=== PATIENT | female | born 1985 | race Caucasian/White ===

== ENCOUNTER 2019-04-08 21:13 | Inpatient (IN) | payer OTHER ==
[2019-04-08 23:18] LABS: BLOOD UREA NITROGEN 6.1 mg/dL (7-18); CALCIUM 9.5 mg/dL (8.5-10.1); CREATININE 0.5 mg/dL (0.55-1.3); POTASSIUM 3.5 mmol/L (3.5-5.1)
[2019-04-08 23:29] VITALS: BMI 30.7
[2019-04-08 23:34] LABS: BASO % 0.3 % (0-2.0); EOS % 0.2 % (0-4.5); HEMATOCRIT 38.8 % (32.4-45.2); HEMOGLOBIN 13.1 GM/dL (10.7-15.3); LYMPH % 7.7 % (8-40); MCH 31.5 pg (25.7-33.7); MCHC 33.8 g/dl (32.0-36.0); MEAN CELL VOLUME 93.1 fl (80-96); MONO % 3.2 % (3.8-10.2); NEUT % 88.6 % (42.8-82.8); PLATELET COUNT 265 K/MM3 (134-434); RBC 4.16 M/mm3 (3.60-5.2); RDW 14.1 % (11.6-15.6)
[2019-04-08] MEDS ORDERED: ELECTROLYTE-148 SOLN 1,000 ML IV SCH (23:45)
[2019-04-09] MEDS ORDERED: FENTANYL/BUPIVACAINE/NS/PF - PCEA - 50 ML DISP.SYRIN EP ONE ×3 (00:03→08:56)
[2019-04-09] MEDS ORDERED: BUPIVACAINE HCL/PF 0.25% (2.5MG/ML) 10 ML VIAL ONE (00:11)
[2019-04-09] MEDS ORDERED: LIDO 2%/EPI 1:200000 PRESRVFRE (20 ML SDVIAL) ONE ×2 (00:11→10:32)
[2019-04-09] MEDS ORDERED: NALOXONE HCL 0.4 MG/ML VIAL IVPUSH PRN (00:38)
[2019-04-09] MEDS ORDERED: FENTANYL/BUPIVACAINE/NS/PF - PCEA - 50 ML DISP.SYRIN EP SCH (00:45)
[2019-04-09] MEDS ORDERED: ELECTROLYTE-148 SOLN 1,000 ML IV SCH (07:00)
--- NOTE | 2019-04-09 07:14 | HP ---
Past Medical History - Primary Care Physician PCP:: Hong Palm - Admission Chief Complaint: 33yo P0 with at EGA 39w4d admitted with spontaneous labor. History of Present Illness: complicated by: 1. LGA fetus with EFW 4225g on US (04/07/2019) 2. Prior TOP x 3 (D&E x 1 at 20wk) History Source: Patient, Medical Record Limitations to Obtaining History: No Limitations - Past Medical History SANITARY AIDE: No: Alzheimer's, CVA, Dementia, Migraine, Multiple Sclerosis, Peripheral Neuropathy, Parkinson's, Seizure, Syncope, TIA, Vertigo, Other Cardiovascular: No: AFIB, Aneurysm, Aortic Insufficiency, Aortic Stenosis, CAD, CHF, Deep Vein Thrombosis, HTN, Hyperlipdemia, [place], Mitral Insufficiency, Mitral Stenosis, Murmur, Pulmonary Hypertension, Other Pulmonary: No: Asthma, Bronchitis, Cancer, COPD, O2 Dependent, Pneumonia, Previously Intubated, Pulmonary Embolus, Pulmonary Fibrosis, Sleep Apnea, Other Gastrointestinal: No: Ascites, Cancer, Constipation, Crohn's Disease, Diverticulitis, Diverticulosis, Esophageal Varices, Gastritis, GERD, GI Bleed, Hemorrhoids, Hiatal Hernia, Inflamatory Bowel Disease, Irritable Bowel Disease, Pancreatitis, Peptic Ulcer Disease, Ulcerative Colitis, Other Hepatobiliary: No: Cirrhosis, Cholelithiasis, Cholecystitis, Choledocholithiasis , Hepatitis A, Hepatitis B, Hepatitis C, Other Renal/: No: Renal Failure, Renal Inusuff, BPH, Cancer, Hematuria, Hemodialysis , Neurogenic Bladder, Renal Calculi, UTI, Other Reproductive: No: Ectopic , Endometriosis, Fibroids, PID, Polycystic Ovary Syndrome, Postmenopausal, Other ...: 4 ...Para: 0 ...Term: 0 ...: 0 ...Spon : 0 ...Induced : 3 ...Multiple Gestation: 0 ...LMP: 07/07/18 ... Weeks Gestation by Dates: 39.4 ...EDC by Dates: 04/13/19 ...EDC by Sono: 04/11/19 Heme/Onc: No: Anemia, B12 Deficiency, Bleeding Disorder, Cancer, Current Chemotherapy, Current Radiation Therapy, Hemochromatosis, Hypercoaguable State, Myeloproliferative Synd, Sickle Cell Disease, Sickle Cell Trait, Thrombocytopenia, Other Infectious Disease: No: AIDS, C-Diff, Herpes Zoster, HIV, MRSA, STD's, Tuberculosis, VREF, Other Psych: No: Addictions, Anxiety, Bipolar, Depression, Panic, Psychosis, Schizophrenia, Other Musculoskeletal: No: Bursitis, Chronic low back pain, Hemiparesis, Hemiplegia, Osteoarthritis, Paraplegia, Other Rheumatology: No: Fibromyalgia, Gout, Lupus, Rheumatoid Arthritis, Sarcoidosis, Vasculitis, Other ENT: No: Allergic Rhinitis, Sinusitis, Other Endocrine: No: Stephens's Disease, Merriman's Disease, Diabetes Insipidus, Diabetes Mellitus, Hyperparathyroidism, Hyperthyroidism, Hypothyroidism, Osteopenia, SIADH, Other Dermatology: No: Basal Cell, Cellulitis, Eczema, Melanoma, Psoriasis, Squamous Cell, Other - Past Surgical History Past Surgical History: No: None, AAA Repair, AICD, Amputation, Appendectomy, Arthrosocopy, AV Fistula/Graft, Bariatric Surgery, Breast Biopsy, Bypass, CABG, Carotid Endarterectomy, Cataract Removal, Cholecystectomy, Colectomy, Colonoscopy, Colostomy, Craniotomy, , Cystectomy, Hernia Repair, Hysterectomy, Ileal Conduit, Ileosotomy, Joint Replacement, Kidney Transplant, Laminectomy, Liver Transplant, Mastectomy, Nephrectomy, Oopherectomy, Orchiectomy, Permanent Pacemaker, Prostatectomy, Splenectomy, Stent, Thoracotomy , TURP, Tonsillectomy, Tubal Ligation, Upper Endoscopy, Valve Replacement, Vasectomy, Vein Stripping/Ligation Hx Myomectomy: No Hx Transabdominal Cerclage: No Additional Surgical History: D&E at 20wk x 1, TOP in 1st trimester x 2. Laparoscopic ovarian cystectomy. - Smoking History Smoking history: Never smoked Have you smoked in the past 12 months: No - Alcohol/Substance Use Hx Alcohol Use: No History of Substance Use: reports: None - Social History Usual Living Arrangement: Yes: With Spouse Do you think of yourself as: Straight/Heterosexual ADL: Independent Occupation: factory clerk at [employer] History of Recent Travel: No Home Medications - Allergies Allergies/Adverse Reactions: Allergies Allergy/AdvReac Type Severity Reaction Status Date / Time almond Allergy Mild Verified 04/07/19 22:47 apple Allergy Mild Verified 04/07/19 22:46 avocado Allergy Mild Verified 04/07/19 22:47 peach Allergy Mild Verified 04/07/19 22:48 pear Allergy Mild Verified 04/07/19 22:48 plum Allergy Mild Verified 04/07/19 22:48 walnut Allergy Mild Verified 04/07/19 22:47 - Home Medications Home Medications: Ambulatory Orders Pnv No.95/Ferrous Fum/Folic AC [ Caplet] 1 tab PO DAILY 04/07/19 Family Medical History Family Hx Cancer: Grandmother (maternal) (stomach) Family Hx Respiratory Disorders: Brother (Asthma) Review of Systems - Review of Systems Constitutional: reports: No Symptoms Eyes: reports: No Symptoms HENT: reports: No Symptoms Neck: reports: No Symptoms Cardiovascular: reports: No Symptoms Respiratory: reports: No Symptoms Gastrointestinal: reports: No Symptoms Genitourinary: reports: No Symptoms Breasts: reports: No Symptoms Reported Musculoskeletal: reports: No Symptoms Integumentary: reports: No Symptoms Neurological: reports: No Symptoms Endocrine: reports: No Symptoms Hematology/Lymphatic: reports: No Symptoms Psychiatric: reports: No Symptoms Pain Intensity: 0 (Epidural) Physical Exam - Maternity Vital Signs: Vital Signs Temperature 98.0 F 04/09/19 06:00 Pulse Rate 112 H 04/09/19 06:45 Respiratory Rate 04/09/19 06:45 Blood Pressure 132/72 04/09/19 06:45 O2 Sat by Pulse Oximetry (%) 99 04/09/19 06:45 Constitutional: Yes: Well Nourished, No Distress, Calm Eyes: Yes: WNL, Conjunctiva Clear, EOM Intact HENT: Yes: WNL, Atraumatic, Normocephalic Neck: Yes: WNL, Supple, Trachea Midline Cardiovascular: Yes: WNL, Regular Rate and Rhythm Lungs: Clear to auscultation, Normal air movement - Abdominal Exam/OB Fundal Height: 40 Number of Fetuses: Single Presentation: Vertex Contractions: Yes Regularity: Irregular Intensity: Unaware Monitor Mode: External Heart Rate (range): 140 Heart Rate Location: Midline Category: I Accelerations: None Decelerations: Variable (occasionally) - Vaginal Exam/OB Vaginal Bleediing: No Speculum Exam: No Dilatation (cm): 3 Effacement (%): 80 Amniotic Membrane Status: Leaking Nitrazine Test: Positive Amniotic Fluid: Yes: Meconium Stained Meconium: Moderate Presentation: Vertex/Position Station: -1 (EFW 4250 grams, gynecoi pelvimetry) - Physical Exam Musculoskeletal: Yes: WNL Extremities: Yes: WNL Edema: No Integumentary: Yes: WNL Deep Tendon Reflex Grade: Normal +2 ...Motor Strength: WNL Psychiatric: Yes: WNL, Alert, Oriented - Labs Lab Results: CBC, BMP 04/08/19 23:20 04/08/19 22:42 Hemorrhage Risk Assessment - Risk Factors Medium Risk Factors: Yes: None High Risk Factors: Yes: None Risk Score: 1 Risk Level: Medium Risk Imaging - Results Ultrasound: Report Reviewed Assessment/Plan 33yo P0 with spontaneous labor. Fetus with category 1 tracing. Pt had some occasional variable decels before but not in last 20 min. Baby appears LGA. Pt has adequate gynecoid pelvimetry and prefers CHRISSY. We discussed he risks of distress, arrest of labor, shoulder dystocia, etc. The pt prefers to try labor augmentation and monitor progress. She will consider a C/S if there is no progress or other OB issues.
[2019-04-09] MEDS ORDERED: OXYTOCIN 30 UNITS in 0.9% NS 30 UNIT/500 ML INFUS.BAG IVPB SCH (07:15)
[2019-04-09 09:11] LABS: INR 1.08 (0.83-1.09); PROTHROMBIN TIME (PATIENT) 12.7 SEC (9.7-13.0)
[2019-04-09 09:14] LABS: ACTIVATED PTT 28.8 SECONDS (25.2-36.5)
[2019-04-09] MEDS ORDERED: ONDANSETRON 4 MG/2 ML VIAL IVPUSH PRN (10:27)
--- NOTE | 2019-04-09 10:31 | PN ---
Ante-Partal Exam - Subjective Subjective: Pt w/o complaints Vital Signs: Vital Signs Temperature 98.6 F 04/09/19 08:00 Pulse Rate 96 H 04/09/19 10:00 Respiratory Rate 18 04/09/19 10:00 Blood Pressure 145/73 04/09/19 10:00 O2 Sat by Pulse Oximetry (%) 99 04/09/19 10:00 Bleeding: No Headache: No Visual changes: No Right upper quadrant pain: No Pain (scale 1-10): 0 - Contractions Contractions: Yes (q2min) Regularity: Regular Intensity: Unaware Monitor Mode: External - Exam during Labor Heart Rate: 140 Variability: Moderate Heart Rate Location: Midline Category: II Monitor Accelerations: Present Monitor Decelerations: Variable Exam: Vaginal Dilatation (cm): 3 Effacement (%): 80 Amniotic Membrane Status: Leaking Nitrazine Test: Positive Amniotic Fluid: Meconium Stained Meconium Staining: Thick Presentation: Vertex Station: -2 - Intrapartum Hemorrhage Risk Medium Risk Factors: None High Risk Factors: None Risk Score: 0 Risk Level: Low Risk - Assessment/Plan Assessment/Plan: 33yo with spont labor and augmented with pitocin. Pt with adequate contractions and no cervical changes and no descent. The pt has cephalopelvic disproportion. due to macrosomia. The fetus with Category II tracing due to variable decels. Pt was offered a C/S. We discussed the risks and benefits of C/S at length, including but not limited to scarring, pain, bleeding, infection, injury to underlying organs and structures, need for additional surgery to repair/treat any problems or complications, complications/ injuries, etc. The pt verbalized her understanding and requested to proceed with surgery. The pt is aware that all surgeries have risks and no guarantees can be provided.
[2019-04-09] MEDS ORDERED: ceFAZolin SODIUM 1 GM VIAL ONE (10:47)
[2019-04-09] MEDS ORDERED: OXYTOCIN 10 UNITS/ML VIAL ONE ×2 (11:00→11:43)
[2019-04-09] MEDS ORDERED: morphine SULFATE/PF 0.5 MG/ML (2cc Syringe - QUVA) ONE ×3 (11:02)
[2019-04-09] MEDS ORDERED: KETOROLAC TROMETHAMINE 30 MG/1 ML VIAL ONE (11:31)
[2019-04-09 11:42] LABS: ARTERIAL BLD GAS O2 SATURATION 23.4 % (95-98); ARTERIAL BLOOD GAS BASE EXCESS -2.3 meq/l (-2-2); ARTERIAL BLOOD GAS PCO2 60.4 mmHg (35-45); ARTERIAL BLOOD GAS pH 7.26 (7.35-7.45)
[2019-04-09 11:46] LABS: VENOUS PC02 51.3 mmHg (38-52); VENOUS PH 7.32 (7.31-7.41)
[2019-04-09 11:51] LABS: ARTERIAL BLOOD GAS PO2 < 49 mmHg (80-100)
[2019-04-09 11:54] LABS: VENOUS PO2 < 49 mmHg (28-48)
[2019-04-09] MEDS ORDERED: WITCH HAZEL 50% (TUCKS) 40 PAD/JAR PAD TP PRN (11:57)
[2019-04-09] MEDS ORDERED: METHYLERGONOVINE MALEATE 0.2 MG/1 ML AMP IM PRN (11:57)
[2019-04-09] MEDS ORDERED: oxyCODONE HCL 5 MG TABLET PO PRN (11:57)
[2019-04-09] MEDS ORDERED: OXYTOCIN 20 UNITS in 0.9% NS 20 UNIT/1,000 ML INFUS.BAG IV SCH (12:00)
--- NOTE | 2019-04-09 12:06 | OP ---
Operative Note - Note: Operative Date: 04/09/19 Pre-Operative Diagnosis: Non-reassuring FHT, CPD Operation: Primary LT C/S Findings: Live baby boy in vtx presentation with meconium in amniotic fluids. Nuchal cord x 1. 9-9, Wt 8lb 2 oz. Normal uterus/tubes/ovaries. Post-Operative Diagnosis: Same as Pre-op Surgeon: Hong Palm Forklift Mechanic: Héctor Salazar Anesthesiologist/LOCKSTITCH SHOULDER JOINER: Aditya Piña Anesthesia: Epidural Specimens Removed: Placenta Estimated Blood Loss (mls): 600 Drains & Tubes with Location: Boone cath Drains, Volume Out (mls): 200 Blood Volume Replaced (mls): 0 Fluid Volume Replaced (mls): 2,000 Operative Report Dictated: Yes
[2019-04-09] MEDS ORDERED: CITRIC ACID/SODIUM CITRATE 30 ML UNIT-DOSE CUP PO ONE (12:16)
[2019-04-09] MEDS ORDERED: OXYTOCIN 20 UNITS in 0.9% NS 20 UNIT/1,000 ML INFUS.BAG IV ONE (12:37)
--- NOTE | 2019-04-09 13:33 | OP ---
DATE OF OPERATION: 04/09/2019 PREOPERATIVE DIAGNOSIS: Non-reassuring heart tracing, cephalopelvic disproportion. POSTOPERATIVE DIAGNOSIS: Non-reassuring heart tracing, cephalopelvic disproportion, delivered. PROCEDURE: Primary low transverse section via a Pfannenstiel skin incision. SURGEON: Hong Palm MD ENGINE MECHANIC: Héctor Salazar MD ANESTHESIOLOGIST: DANYELL Mendez ANESTHESIA: Epidural. COMPLICATIONS: None. ESTIMATED BLOOD LOSS: 600 mL PATHOLOGY: Placenta. FINDINGS: Live baby boy in vertex presentation with meconium in amniotic fluids. Nuchal cord wrapped around once. 9 and 9. Baby's weight 8 pounds 2 ounces. Normal uterus, fallopian tubes and ovaries. URINE OUTPUT: 200 mL. INTRAVENOUS FLUIDS: 2000 mL OPERATIVE REPORT FOR SURGERY: The patient was met preoperatively. Risks, benefits and alternatives of surgery were discussed in details, all questions were answered. The consent form was reviewed and signed. The patient verbalized understanding and requested to proceed with surgery. She was brought to the OR with the IV running. The patient was placed on the surgical table. The epidural anesthesia was bolused and the level was found to be adequate. The patient was then prepped and draped in the usual sterile fashion. A Boone catheter was left to drain to gravity. The timeout was conducted as per standard protocol. The surgeons then proceeded with the operation. A Pfannenstiel skin incision was made with the knife approximately 2 cm above the pubic symphysis. The incision was taken down to the level of fascia. The fascia was incised in the midline and the incision was extended bilaterally using Holcomb scissors. The fascia was then dissected away from the rectus muscles superiorly and inferiorly. The rectus muscles were in the midline using blunt dissection. The peritoneum was identified and entered sharply. The peritoneal incision was extended superiorly and inferiorly using Metzenbaum scissors. The bladder peritoneum was dissected away from the lower uterine segment. The bladder was reflected downwards and retracted using a Cesar retractor. The uterus was incised transversely in the lower uterine segment. The uterine incision was extended bilaterally using Bandage scissors. The baby was delivered from vertex presentation without complications. The nuchal cord was released without difficulty. The baby was crying spontaneously. The umbilical cord was clamped and cut. The baby was handed to the awaiting electronic test technician. The placenta was removed manually and without complications. The uterus was cleared of all clots and debris using laparotomy laps. The uterine incision was repaired using a 0 Biosyn suture with a running locking stitch. Good hemostasis was noted. The incision was then imbricated using a secondary layer of closure with a 0 Biosyn suture. Good hemostasis was noted. The bladder peritoneum was reapproximated using a 0 Biosyn suture. The operative site was irrigated using copious amounts of normal saline. Once the saline was aspirated, good hemostasis was confirmed. The parietal peritoneum was closed using a 2-0 chromic suture. The rectus muscles were approximated using several interrupted 2-0 chromic sutures. The fascia was closed using a 0 Vicryl suture with the running stitch. Good hemostasis and approximation were noted. The subcutaneous tissues and Diane fascia were approximated using several interrupted 0 Vicryl sutures. The skin was closed with a subcutaneous stitch using 4-0 Biosyn stitch. Sponge, lap, needle, instrument counts were correct. The patient tolerated the procedure well and was transferred to the recovery room in stable condition. Mio [id number]
[2019-04-09] MEDS: IBUPROFEN 800 MG/8 ML IJ IVPB PRN (22:24)
[2019-04-10] MEDS: IBUPROFEN 800 MG/8 ML IJ IVPB PRN (06:12)
[2019-04-10 07:49] LABS: BASO % 0.1 % (0-2.0); EOS % 0.6 % (0-4.5); HEMATOCRIT 32.2 % (32.4-45.2); HEMOGLOBIN 10.9 GM/dL (10.7-15.3); MCH 31.9 pg (25.7-33.7); MCHC 33.8 g/dl (32.0-36.0); MEAN CELL VOLUME 94.5 fl (80-96); MEAN PLT VOLUME 8.8 fl (7.5-11.1); MONO % 4.1 % (3.8-10.2); NEUT % 88.2 % (42.8-82.8); PLATELET COUNT 201 K/MM3 (134-434); RBC 3.41 M/mm3 (3.60-5.2); WHITE BLOOD COUNT 12.2 K/mm3 (4.0-10.0)
[2019-04-10] MEDS: SIMETHICONE 80 MG TAB.CHEW (FP) PO PRN ×2 (10:37→14:36)
[2019-04-10] MEDS: PRENATAL VITAMINS W/ FOLIC ACID TABLET (FP) PO SCH (10:37)
[2019-04-10] MEDS: ENOXAPARIN NA (PORCINE) 40 MG/0.4 ML DISP.SYRIN SQ SCH (10:37)
--- NOTE | 2019-04-10 11:15 | PN ---
Progress Note (short form) - Note Progress Note: 33F s/p under epidural. No new c/o. Vital Signs Temp 98.8 F 04/10/19 09:00 Pulse 94 H 04/10/19 09:00 Resp 20 04/10/19 09:00 BP 111/67 04/10/19 09:00 Pulse Ox 98 04/09/19 13:40 Intake & Output 04/09/19 04/09/19 04/10/19 11:59 23:59 11:59 Intake Total 1300 2303 1900 Output Total 400 1800 1250 Balance 900 503 650 Intake: IV 1300 1703 1000 NORMAL SALINE+20 UNITS 700 1000 OXYTOCIN - 20 unit In 1, 000 ml @ 125 mls/hr IV ASDIR SHIRA Rx#:[id number] NORMAL SALINE+30 UNITS 3 OXYTOCIN 30 unit In 500 ml @ 0.06 UNIT/HR 1 mls/ hr IVPB TITR SHIRA Rx#: [id number] Plasma-Lyte 148 - 1,000 1300 ml @ 125 mls/hr IV ASDIR SHIRA Rx#:[id number] Plasma-Lyte 148 - 1,000 1000 ml @ 125 mls/hr IV ASDIR SHIRA Rx#:[id number] IVPB 500 Oral 600 400 Output: Urine 400 1200 1250 Boone 400 1200 1000 Void 250 Emesis 600 Other: Voiding Method Indwelling Catheter Indwelling Catheter Toilet Bowel Movement No No Weight 8 lb 2 oz Length 20 in CBC, BMP 04/10/19 07:21 04/08/19 22:42 - No anesthesia complications
[2019-04-10] MEDS ORDERED: BISACODYL 10 MG SUPP.RECT RC PRN (11:58)
[2019-04-10] MEDS ORDERED: ACETAMINOPHEN 325 MG TABLET (FP) ONE (14:29)
[2019-04-10] MEDS: ACETAMINOPHEN 325 MG TABLET (FP) PO PRN ×2 (14:36→22:44)
[2019-04-10] MEDS: IBUPROFEN 600 MG TABLET (FP) PO PRN ×2 (14:36→22:43)
[2019-04-11] MEDS: IBUPROFEN 600 MG TABLET (FP) PO PRN ×2 (09:09→20:23)
[2019-04-11] MEDS: ACETAMINOPHEN 325 MG TABLET (FP) PO PRN ×2 (09:10→20:23)
[2019-04-11] MEDS: ENOXAPARIN NA (PORCINE) 40 MG/0.4 ML DISP.SYRIN SQ SCH (09:11)
[2019-04-11] MEDS: SIMETHICONE 80 MG TAB.CHEW (FP) PO PRN ×2 (09:11→20:22)
[2019-04-11] MEDS: PRENATAL VITAMINS W/ FOLIC ACID TABLET (FP) PO SCH (09:11)
--- NOTE | 2019-04-11 09:11 | PN ---
Post Progress Note - Subjective Subjective: Patient without acute complaints. Reports tolerating oral intake without nausea or vomiting. Ambulating without dizziness. Denies fevers or chills. Pain well controlled with oral pain medication. Pumping/breast feeding without issue. Passing flatus, no BM. Post Day: 2 Type of Delivery: Primary C/S Vital Signs: Vital Signs Temperature 98.2 F 04/11/19 07:40 Pulse Rate 94 H 04/11/19 07:40 Respiratory Rate 18 04/11/19 07:40 Blood Pressure 113/71 04/11/19 07:40 O2 Sat by Pulse Oximetry (%) 98 04/09/19 13:40 Breast Exam: Yes: Soft Uterus: Yes: Fundus Firm, Fundus below umbilicus Incision: Yes: Sutures intact Abdomen/GI: Yes: Abdomen soft, Tolerating PO Lochia: Yes: Rubra Lochia, amount: Small Extremities: Yes: Calves non-tender Perineum: Yes: Intact Activity: Ambulating - Labs Labs: CBC WBC 12.2 K/mm3 (4.0-10.0) H 04/10/19 07:21 Corrected WBC (auto) Cancelled 04/08/19 22:42 RBC 3.41 M/mm3 (3.60-5.2) L 04/10/19 07:21 Hgb 10.9 GM/dL (10.7-15.3) 04/10/19 07:21 Hct 32.2 % (32.4-45.2) L D 04/10/19 07:21 MCV 94.5 fl (80-96) 04/10/19 07:21 MCH 31.9 pg (25.7-33.7) 04/10/19 07:21 MCHC 33.8 g/dl (32.0-36.0) 04/10/19 07:21 RDW 14.0 % (11.6-15.6) 04/10/19 07:21 Plt Count 201 K/MM3 (134-434) D 04/10/19 07:21 MPV 8.8 fl (7.5-11.1) 04/10/19 07:21 Absolute Neuts (auto) 10.8 K/mm3 (1.5-8.0) H 04/10/19 07:21 Neutrophils % 88.2 % (42.8-82.8) H 04/10/19 07:21 Lymphocytes % 7.0 % (8-40) L 04/10/19 07:21 Monocytes % 4.1 % (3.8-10.2) 04/10/19 07:21 Eosinophils % 0.6 % (0-4.5) D 04/10/19 07:21 Basophils % 0.1 % (0-2.0) 04/10/19 07:21 Nucleated RBC % 0 % (0-0) 04/10/19 07:21 Platelet Estimate Cancelled 04/08/19 22:42 Platelet Comment Cancelled 04/08/19 22:42 Assessment/Plan 33yo P1 s/p primary LT C/S, doing well stable, afebrile. care instructions reviewed. Continue routine postop care. Ambulation encouraged.
--- NOTE | 2019-04-11 09:15 | DS ---
Physical Exam-BOAT FUELER Vital Signs: Vital Signs Temperature 98.2 F 04/11/19 07:40 Pulse Rate 94 H 04/11/19 07:40 Respiratory Rate 18 04/11/19 07:40 Blood Pressure 113/71 04/11/19 07:40 O2 Sat by Pulse Oximetry (%) 98 04/09/19 13:40 Constitutional: Yes: Well Nourished, No Distress, Calm Eyes: Yes: WNL, Conjunctiva Clear, EOM Intact HENT: Yes: WNL, Atraumatic, Normocephalic Neck: Yes: WNL, Supple, Trachea Midline Cardiovascular: Yes: WNL, Regular Rate and Rhythm Respiratory: Yes: WNL, Regular, CTA Bilaterally Gastrointestinal: Yes: WNL, Normal Bowel Sounds, Soft ...Rectal Exam: Yes: Deferred Renal/: Yes: WNL Internal Exam Deferred: Yes ....Post : Yes: Uterus firm, Uterus non-tender, Slight lochia rubra Breast(s): Yes: WNL Musculoskeletal: Yes: WNL Extremities: Yes: WNL Edema: Yes Edema: LLE: Trace, RLE: Trace Integumentary: Yes: WNL Wound/Incision: Yes: Clean/Dry, Well Approximated, Sutures Intact, Steri Strips , Open to air Neurological: Yes: WNL, Alert, Oriented ...Motor Strength: WNL Psychiatric: Yes: WNL, Alert, Oriented Labs: CBC, BMP 04/10/19 07:21 04/08/19 22:42 Delivery - Delivery Section: Primary, Low Flap Transverse Type of Anesthesia: Epidural Episiotomy/Laceration: None EBL (cc): 600 Delivery, Single - Stages of Labor Date 1st Stage Initiatied: 04/08/19 Time 1st Stage Initiated: 18:00 Date of Delivery: 04/09/19 Time of Delivery: 11:05 Time Placenta Delivered: 11:06 Placenta: Yes: Manual Removal, Normal Configuration - Condition of Infant Button Tufter/Aerobics Instructor Present: Yes Name: Enriqueta Delgado Gender: Male Weight: 3.685 kg Position: Right, OT Total Hours ROM (Hrs/Mins): 7hrs/1min - 1 Minute Total Score: 9 5 Minutes Total Score: 9 - [place] Feeding Plan Initial Plan: Exclusive throughout hospitalization Benefits of Exclusively reinforced: Yes Discharge Summary Problems reviewed: Yes Reason For Visit: LABOR Non-reassuring tracing, cephalopelvic disproportion Procedures: Principal: Primary LT C/S Hospital Course: Normal postop and recovery Condition: Good - Instructions Diet, Activity, Other Instructions: Physical activity Resume your normal everyday activity as tolerated no heavy lifting or exercise until seen by your surgeon. You may walk unlimited gómez of and climb stairs. You may resume driving the car when you feel safe and comfortable behind the wheel. No sexual activity as instructed. Wound care If you have a bandage, leave it on, and keep dry for 48-72 hours. After that time discard the outer bandage. If they are tapes on the skin under the out of bandage leave them in place. They will peel off in the next 7 to 10 days. Do Not Peel them off. You may shower the day after surgery. If there are tapes present on the skin, you may shower over them. Diet There are no dietary restrictions. Eat healthy, high-fiber foods. Drink 6 to 8 glasses of liquid each day. This will assist in keeping your bowels are regular. Pain management You may take Tylenol or acetaminophen or Ibuprofen (for example, Motrin, Advil etc.) from my pain prescription medication is ordered should be taken as prescribed for moderate to severe pain. Call MD for any of the following: Severe pain not relieved by medication Fever of 101 or higher Excessive bleeding or drainage on dressing Inability to urinate Referrals: Hong Palm MD [Staff Physician] - Disposition: HOME - Home Medications Comprehensive Discharge Medication List: Ambulatory Orders Pnv No.95/Ferrous Fum/Folic AC [ Caplet] 1 tab PO DAILY 04/07/19 Prescription Drug Monitoring Program (I-STOP) results: I-STOP not reviewed
[2019-04-11] MEDS: SENNOSIDES/DOCUSATE COMBO (SENNA PLUS) TABLET (UD) PO PRN (20:22)
[2019-04-12 08:24] LABS: BASO % 0.3 % (0-2.0); EOS % 2.4 % (0-4.5); HEMATOCRIT 31.1 % (32.4-45.2); HEMOGLOBIN 10.6 GM/dL (10.7-15.3); LYMPH % 16.3 % (8-40); MCH 32.2 pg (25.7-33.7); MCHC 34.2 g/dl (32.0-36.0); MEAN CELL VOLUME 94.1 fl (80-96); MEAN PLT VOLUME 8.3 fl (7.5-11.1); MONO % 3.7 % (3.8-10.2); NEUT % 77.3 % (42.8-82.8); PLATELET COUNT 272 K/MM3 (134-434); RDW 14.3 % (11.6-15.6); WHITE BLOOD COUNT 7.8 K/mm3 (4.0-10.0)
[2019-04-12] MEDS: PRENATAL VITAMINS W/ FOLIC ACID TABLET (FP) PO SCH (09:20)
[2019-04-12] MEDS: ENOXAPARIN NA (PORCINE) 40 MG/0.4 ML DISP.SYRIN SQ SCH (09:20)
--- NOTE | 2019-04-12 10:16 | PN ---
Post Progress Note - Subjective Subjective: Patient without acute complaints. Reports tolerating oral intake without nausea or vomiting. Ambulating without dizziness. Denies fevers or chills. Pain well controlled with oral pain medication. Pumping/breast feeding without issue. Passing flatus, + BM. Post Day: 3 Type of Delivery: Primary C/S Vital Signs: Vital Signs Temperature 98.1 F 04/12/19 07:40 Pulse Rate 92 H 04/12/19 07:40 Respiratory Rate 18 04/12/19 07:40 Blood Pressure 120/74 04/12/19 07:40 O2 Sat by Pulse Oximetry (%) 98 04/09/19 13:40 Breast Exam: Yes: Soft Uterus: Yes: Fundus Firm Incision: Yes: Sutures intact Abdomen/GI: Yes: Abdomen soft, Passing flatus, Tolerating PO Lochia: Yes: Rubra Lochia, amount: Small Extremities: Yes: Calves non-tender Perineum: Yes: Intact Activity: Ambulating - Labs Labs: CBC WBC 7.8 K/mm3 (4.0-10.0) 04/12/19 07:52 Corrected WBC (auto) Cancelled 04/08/19 22:42 RBC 3.30 M/mm3 (3.60-5.2) L 04/12/19 07:52 Hgb 10.6 GM/dL (10.7-15.3) L 04/12/19 07:52 Hct 31.1 % (32.4-45.2) L 04/12/19 07:52 MCV 94.1 fl (80-96) 04/12/19 07:52 MCH 32.2 pg (25.7-33.7) 04/12/19 07:52 MCHC 34.2 g/dl (32.0-36.0) 04/12/19 07:52 RDW 14.3 % (11.6-15.6) 04/12/19 07:52 Plt Count 272 K/MM3 (134-434) D 04/12/19 07:52 MPV 8.3 fl (7.5-11.1) 04/12/19 07:52 Absolute Neuts (auto) 6.1 K/mm3 (1.5-8.0) 04/12/19 07:52 Neutrophils % 77.3 % (42.8-82.8) 04/12/19 07:52 Lymphocytes % 16.3 % (8-40) D 04/12/19 07:52 Monocytes % 3.7 % (3.8-10.2) L 04/12/19 07:52 Eosinophils % 2.4 % (0-4.5) D 04/12/19 07:52 Basophils % 0.3 % (0-2.0) 04/12/19 07:52 Nucleated RBC % 0 % (0-0) 04/12/19 07:52 Platelet Estimate Cancelled 04/08/19 22:42 Platelet Comment Cancelled 04/08/19 22:42 Assessment/Plan 33yo P1 s/p primary LT C/S, doing well stable, afebrile H/H stable. care instructions reviewed. Continue routine postop care. Ambulating
[2019-04-12] MEDS: IBUPROFEN 600 MG TABLET (FP) PO PRN (10:41)
[2019-04-12] MEDS: ACETAMINOPHEN 325 MG TABLET (FP) PO PRN (10:43)
[2019-04-12] MEDS: SIMETHICONE 80 MG TAB.CHEW (FP) PO PRN (10:44)
[2019-04-12] MEDS: SENNOSIDES/DOCUSATE COMBO (SENNA PLUS) TABLET (UD) PO PRN (21:07)
[2019-04-13] MEDS: ACETAMINOPHEN 325 MG TABLET (FP) PO PRN (07:45)
[2019-04-13] MEDS: SIMETHICONE 80 MG TAB.CHEW (FP) PO PRN (07:45)
[2019-04-13] MEDS: IBUPROFEN 600 MG TABLET (FP) PO PRN (07:45)
[2019-04-13 07:51] VITALS: BP 131/88; PULSE 88; TEMP 98.5
[2019-04-13] MEDS: ENOXAPARIN NA (PORCINE) 40 MG/0.4 ML DISP.SYRIN SQ SCH (09:57)
[2019-04-13] MEDS: PRENATAL VITAMINS W/ FOLIC ACID TABLET (FP) PO SCH (09:57)
--- NOTE | 2019-04-13 19:32 | PATH ---
Surgical Pathology Report Patient Name: HELIO PEARL Med. Rec. #: [id number] /Age/Gender: 1985 (Age: 33) / F Account: [id number] Location: [facility] OBS/FOOD AND BEVERAGE SERVICE MANAGER Taken: 04/09/2019 Received: 04/11/2019 Reported: 04/13/2019 Physicians: Hong Palm M.D. Specimen(s) Received PLACENTA Clinical History 39.4 weeks and a prior history of laparoscopic ovarian cystectomy, D&C at 20 weeks Final Diagnosis PLACENTA: THIRD TRIMESTER PLACENTA WITH FOCAL CHRONIC DECIDUITIS. TRIVASCULAR CORD. MEMBRANES WITH NO DIAGNOSTIC ABNORMALITIES. Electronically Signed Olive Jimenes M.D. Gross Description The specimen is received fresh labeled placenta and is a 399 gram, 22 x20 x 1.8cm. placenta with attached membranes and umbilical cord. The attached membranes are glistening, translucent, and insert marginally. The umbilical cord measures 14 cm. in length and averages 1.5 cm. in diameter. The cord inserts centrally, 6 centimeter to the nearest margin. No true knots or strictures are identified. Cut surface of the umbilical cord reveals 3 vessels. Sectioning reveals red-brown, spongy parenchyma. No lesions are identified. Carton Making Machine Operator sections are submitted in three cassettes as follows: 1- membrane rolls and umbilical cord; 2-3- full thickness sections of placenta KWS/04/12/2019 sulki/04/12/2019
== END 2019-04-13 12:20 | disposition home or self-care (01) | DRG 788 ==
LOC: JDEL 21:13 → JLDR 22:00 → J3W 04-09 13:50
PROVIDERS: ADMIT Obstetrics & Gynecology; ATTEND Obstetrics & Gynecology
PROC: 10D00Z1 Extraction of Products of Conception, Low, Open Approach (ICD-10-PCS; principal; 2019-04-09)
DX: O76 Abnormality in fetal heart rate and rhythm complicating labor and delivery (principal); O69.81X0 Labor and delivery complicated by cord around neck, without compression, not applicable or unspecified; O33.9 Maternal care for disproportion, unspecified; O77.0 Labor and delivery complicated by meconium in amniotic fluid; Z3A.39 39 weeks gestation of pregnancy; Z37.0 Single live birth
CPT/HCPCS: 36415; 36600; 80048; 82803; 85025; 85610; 85730; 86593; 86850; 86900; 86901; 87389; 88307-TC

== ENCOUNTER 2021-11-11 06:10 | Inpatient (IN) | payer OTHER ==
[2021-11-11 06:50] VITALS: BMI 29.5
[2021-11-11] MEDS ORDERED: CITRIC ACID/SODIUM CITRATE 30 ML UNIT-DOSE CUP PO ONE (07:00)
[2021-11-11] MEDS ORDERED: ELECTROLYTE-148 SOLN 1,000 ML IV SCH (08:15)
[2021-11-11] MEDS ORDERED: morphine SULFATE/PF 1 MG/2 ML (2cc Syringe - QUVA) ONE (08:16)
[2021-11-11] MEDS ORDERED: ceFAZolin SODIUM 1 GM VIAL ONE (08:17)
[2021-11-11] MEDS ORDERED: PHENYLEPHRINE HCL 10 MG/1 ML SINGLE DOSE VIAL ONE (08:17)
[2021-11-11] MEDS ORDERED: PROPOFOL 20 ML ONE (08:17)
[2021-11-11] MEDS ORDERED: ePHEDrine SULFATE 50 MG/1 ML AMPULE ONE (08:17)
[2021-11-11] MEDS ORDERED: OXYTOCIN 10 UNITS/ML VIAL ONE ×2 (08:22→08:47)
[2021-11-11] MEDS ORDERED: KETOROLAC TROMETHAMINE 30 MG/1 ML VIAL ONE (08:56)
[2021-11-11] MEDS ORDERED: ONDANSETRON 4 MG/2 ML VIAL ONE (08:56)
[2021-11-11] MEDS ORDERED: OXYTOCIN 20 UNITS in 0.9% NS 20 UNIT/1,000 ML INFUS.BAG IV ONE ×2 (09:07→10:52)
[2021-11-11 09:47] LABS: CORD BASE EXCESS -0.8 mmol/L (0-2); CORD HCO3 25.3 mmHg (20-29); CORD PCO2 47.5 mmHg (30-78); CORD pH 7.345 (7.14-7.44)
[2021-11-11 09:50] LABS: CORD BASE EXCESS -1.6 mmol/L (0-2); CORD HCO3 27.5 mmHg (20-29); CORD PCO2 67.6 mmHg (30-78); CORD pH 7.228 (7.14-7.44)
[2021-11-11] MEDS ORDERED: BENZOCAINE 28 GM HEMORRHOIDAL OINTMENT TP PRN (09:57)
[2021-11-11] MEDS ORDERED: IBUPROFEN 800 MG/8 ML IJ IVPB PRN (09:57)
[2021-11-11] MEDS ORDERED: METHYLERGONOVINE MALEATE 0.2 MG/1 ML AMP IM PRN (09:57)
[2021-11-11] MEDS ORDERED: BENZOCAINE 20% 57 GM BOTTLE TP PRN (09:57)
[2021-11-11] MEDS ORDERED: WITCH HAZEL 50% (TUCKS) 40 PAD/JAR PAD TP PRN (09:57)
[2021-11-11] MEDS ORDERED: SENNOSIDES/DOCUSATE COMBO (SENNA PLUS) TABLET (UD) PO PRN (09:57)
[2021-11-11] MEDS ORDERED: ACETAMINOPHEN 325 MG TABLET (FP) PO PRN (09:57)
[2021-11-11] MEDS: OXYTOCIN 20 UNITS in 0.9% NS 20 UNIT/1,000 ML INFUS.BAG IV SCH ×2 (11:08→19:31)
[2021-11-11] MEDS: PRENATAL VITAMINS W/ FOLIC ACID TABLET (FP) PO SCH (11:37)
[2021-11-11] MEDS: SIMETHICONE 80 MG TAB.CHEW (FP) PO PRN (20:46)
[2021-11-11] MEDS ORDERED: oxyCODONE HCL 5 MG TABLET PO PRN (21:57)
[2021-11-12 08:29] LABS: BASO % 0.4 % (0-2.0); EOS % 0.7 % (0-4.5); HEMATOCRIT 36.9 % (32.4-45.2); HEMOGLOBIN 12.1 GM/dL (10.7-15.3); LYMPH % 15.4 % (8-40); MCH 30.4 pg (25.7-33.7); MCHC 32.8 g/dl (32.0-36.0); MEAN CELL VOLUME 92.7 fl (80-96); MEAN PLT VOLUME 8.4 fl (7.5-11.1); MONO % 3.3 % (3.8-10.2); NEUT % 80.2 % (42.8-82.8); PLATELET COUNT 243 10^3/uL (134-434); RBC 3.98 M/mm3 (3.60-5.2); RDW 13.8 % (11.6-15.6); WHITE BLOOD COUNT 7.8 K/mm3 (4.0-10.0)
[2021-11-12] MEDS: ENOXAPARIN NA (PORCINE) 40 MG/0.4 ML DISP.SYRIN SQ SCH (09:34)
[2021-11-12] MEDS: IBUPROFEN 600 MG TABLET (FP) PO PRN ×3 (09:35→22:40)
[2021-11-12] MEDS: PRENATAL VITAMINS W/ FOLIC ACID TABLET (FP) PO SCH (09:35)
[2021-11-12] MEDS: SIMETHICONE 80 MG TAB.CHEW (FP) PO PRN ×2 (09:36→21:28)
[2021-11-12] MEDS ORDERED: BISACODYL 10 MG SUPP.RECT RC PRN (09:57)
[2021-11-13] MEDS: oxyCODONE HCL 5 MG TABLET PO PRN ×2 (00:21→12:15)
[2021-11-13] MEDS: IBUPROFEN 600 MG TABLET (FP) PO PRN ×4 (05:39→20:53)
[2021-11-13] MEDS: ENOXAPARIN NA (PORCINE) 40 MG/0.4 ML DISP.SYRIN SQ SCH (09:20)
[2021-11-13] MEDS: PRENATAL VITAMINS W/ FOLIC ACID TABLET (FP) PO SCH (09:21)
[2021-11-13] MEDS: SIMETHICONE 80 MG TAB.CHEW (FP) PO PRN ×2 (12:15→20:53)
[2021-11-13 22:41] VITALS: RESP 18
[2021-11-14] MEDS: IBUPROFEN 600 MG TABLET (FP) PO PRN ×2 (04:38→09:18)
[2021-11-14] MEDS: SIMETHICONE 80 MG TAB.CHEW (FP) PO PRN ×2 (04:38→09:18)
[2021-11-14 08:09] LABS: BASO % 0.2 % (0-2.0); EOS % 2.1 % (0-4.5); HEMATOCRIT 34.4 % (32.4-45.2); HEMOGLOBIN 11.9 GM/dL (10.7-15.3); LYMPH % 18.9 % (8-40); MCH 32.2 pg (25.7-33.7); MCHC 34.6 g/dl (32.0-36.0); MEAN CELL VOLUME 92.9 fl (80-96); MEAN PLT VOLUME 7.8 fl (7.5-11.1); MONO % 2.9 % (3.8-10.2); NEUT % 75.9 % (42.8-82.8); PLATELET COUNT 249 10^3/uL (134-434); RBC 3.71 M/mm3 (3.60-5.2); RDW 13.9 % (11.6-15.6); WHITE BLOOD COUNT 6.7 K/mm3 (4.0-10.0)
[2021-11-14] MEDS: PRENATAL VITAMINS W/ FOLIC ACID TABLET (FP) PO SCH (09:17)
[2021-11-14] MEDS: ENOXAPARIN NA (PORCINE) 40 MG/0.4 ML DISP.SYRIN SQ SCH (09:18)
[2021-11-14 11:29] VITALS: BP 110/74; PULSE 84; TEMP 97.3
== END 2021-11-14 12:35 | disposition home or self-care (01) | DRG 788 ==
LOC: JLDR 06:10 → J3W 11:20
PROVIDERS: ADMIT Obstetrics & Gynecology; ATTEND Obstetrics & Gynecology
PROC: 10D00Z1 Extraction of Products of Conception, Low, Open Approach (ICD-10-PCS; principal; 2021-11-11)
DX: O34.219 Maternal care for unspecified type scar from previous cesarean delivery (principal); Z3A.39 39 weeks gestation of pregnancy; Z37.0 Single live birth
CPT/HCPCS: 36415; 36600; 82803; 85025; 88307-TC